=== PATIENT | female | born 1980 | race Two or more races ===

== ENCOUNTER 2024-06-01 15:59 | Emergency (ER) | payer MEDICAID, SELFPAY ==
[2024-06-01 16:34] VITALS: BP 129/82; PULSE 78; RESP 18; TEMP 36.9; O2SAT 98; BMI 24.9
--- NOTE | 2024-06-01 16:40 | XR_ITS ---
Examination: Abdomen sonogram, Limited Date and time of exam: June 01, 2024 1633 hrs. Indications: Epigastric pain beginning 2 days ago Technique: Real-time gomez scale transabdominal sonographic images of the upper abdomen obtained. Findings: Multiple gallstones Normal gallbladder wall Normal common bile duct 0.5 cm Pancreatic head 2.3 cm Liver 15.4 cm smooth contour Normal hepatopedal portal venous flow Patent IVC Impression: Cholelithiasis, negative for cholecystitis
--- NOTE | 2024-06-01 16:42 | PD.EDRME ---
Rapid Medical Screening Exam E Arrival date/time: 06/01/24 15:59 44-year-old female presents to the emergency department with complaints of upper epigastric abdominal pain radiating to bilateral flanks. I have greeted and performed a focused initial assessment of this patient. Initial appropriate labs ordered at this time. A comprehensive ED assessment and evaluation of the patient and analysis of all test and completion of medical decision making process will be conducted by additional ED provider. Chief Complaint: Abdominal Pain Time Seen by Provider: 06/01/24 16:10 Vital signs: Vital Signs Temperature 98.4 F 06/01/24 16:34 Pulse Rate 78 06/01/24 16:34 Respiratory Rate 18 06/01/24 16:34 Blood Pressure 129/82 06/01/24 16:34 Pulse Oximetry (%) 98 06/01/24 16:34 Oxygen Delivery Method Room Air 06/01/24 16:34
[2024-06-01 17:36] LABS: Hematocrit 40.2 % (36.0-46.0); Hemoglobin 13.6 g/dL (12.0-16.0); Lymphocytes % (Auto) 15 % (10-50); Mean Corpuscular HGB Conc 33.8 g/dl (31.0-37.0); Mean Corpuscular Hemoglobin 27.5 pg (25.0-35.0); Mean Corpuscular Volume 81 fL (80-100); Monocytes % (Auto) 5 % (0-12); Neutrophils % (Auto) 78 % (37-80); Platelet Count 265 Thou/mm3 (140-440); RDW Standard Deviation 38.1 fL (36.4-46.3); Red Blood Count 4.95 Miln/mm3 (4.00-5.20); White Blood Count 16.7 Thou/mm3 (3.6-11.0)
[2024-06-01 17:37] LABS: Basophils # (Auto) 0.1 Thou/mm3 (0.0-0.2); Basophils % (Auto) 0 % (0-2.5); Eosinophils # (Auto) 0.1 Thou/mm3 (0.0-0.5); Eosinophils % (Auto) 1 % (0-10); Immature Granulocytes % (Auto) 1 % (0-0); Immature Granulocytes Auto 0.08 Thou/mm3 (0.00-0.00); Lymphocytes # (Auto) 2.6 Thou/mm3 (1.0-4.8); Monocytes # (Auto) 0.9 Thou/mm3 (0.0-0.8); Neutrophils # (Auto) 13.1 Thou/mm3 (1.8-7.7); Nucleated Red Blood Cell % 0 /100 WBC (0)
[2024-06-01 17:55] LABS: Alanine Aminotransferase 40 U/L (10-49); Albumin, Serum 4.7 gm/dL (3.5-5.0); Albumin/Globulin Ratio 1.7 (1.2-2.2); Alkaline Phosphatase 108 U/L (46-116); Anion Gap 8 (7-16); Aspartate Amino Transferase 56 U/L (0-34); BUN/Creatinine Ratio 14 Ratio (12-20); Bilirubin,Total 0.3 mg/dL (0.3-1.2); Blood Urea Nitrogen 11 mg/dL (9-23); Calcium 9.2 mg/dL (8.3-10.6); Calcium (Corrected) 9.2 mg/dL (8.5-10.1); Carbon Dioxide 27.1 mMol/L (20.0-31.0); Chloride 104 mMol/L (98-107); Creatinine (Component) 0.8 mg/dL (0.6-1.3); Estimated Creatinine Clearance 84.6 mL/min (>60); Globulin 2.7 gm/dL (2.3-3.5); Glucose 114 mg/dL (74-106); Lipase 41 U/L (12-53); Osmolality,Calculated 277 (275-295); Potassium 3.7 mMol/L (3.4-5.1); Sodium 139 mMol/L (136-145); Total Protein 7.4 gm/dL (5.7-8.2); eGFR > 60 See Note
[2024-06-01 18:11] LABS: Collection Type, Urine Clean Catch
[2024-06-01 18:51] LABS: Bilirubin,Urine Negative (Negative); Blood,Urine Negative (Negative); Clarity,Urine Clear (Clear/Hazy); Color,Urine Lt-Yellow (Lt Yel-Yel); Glucose, Urine Negative (Negative); HCG Qualitative,Urine Negative; Ketones,Urine Negative (Negative); Leukocyte Esterase,Urine Positive (Negative); Nitrite,Urine Negative (Negative); Protein,Urine Trace (Neg - Trace); RBC,Urine 6 /hpf (0-3); Specific Gravity,Urine 1.021 (1.001-1.035); Squamous Epithelial Cell,Urine 8 /hpf (0-5); Urobilinogen,Urine Negative mg/dL (0.0-1.0); WBC,Urine 4 /hpf (0-5)
[2024-06-01] MEDS: LIDOCAINE VISCOUS 2% 15 ML UDC PO (19:00)
[2024-06-01] MEDS: MG HYD/AL HYD/SIME (Maalox Reg) SUSP 30 ML UDC PO (19:00)
--- NOTE | 2024-06-01 19:04 | EDNOTE_ITS ---
ED Abdominal Pain RME/HPI General Chief Complaint: Abdominal Pain Stated complaint: STOMACH CRAMPS X 20 MIN Time seen by provider: 06/01/24 16:10 Arrival date/time: 06/01/24 15:59 RME / HPI RME / HPI narrative: 44-year-old female patient came in for evaluation regarding epigastric pain. Onset of symptoms for the last several weeks as on and off epigastric pain usually after eating heavy foods. Today it happened again lasting for 20 minutes. No vomiting no other complaints. No medication was taken prior travel. Related Data Home Medications ?Medication ?Instructions ?Recorded ?Confirmed vitamins-iron fumarate 27 tab PO 1XD 09/09/19 mg iron-folic acid 0.8 mg tablet ( Vitamin) Previous Rx's ?Medication ?Instructions ?Recorded ibuprofen 600 mg tablet 600 mg PO Q6H PRN pain #30 t abs 11/21/23 dicyclomine 20 mg tablet 20 mg PO TID PRN abdominal p ain 06/01/24 #30 tabs pantoprazole 40 mg tablet,delayed 40 mg PO QDAY #14 ta bs 06/01/24 release (Protonix) Allergies Allergy/AdvReac Type Severity Reaction Status Date / Time morphine Allergy Mild ITCHING Verified 06/01/24 16:02 Review of Systems Review of Systems Narrative Review of Systems: Review of system reviewed and within normal limits except mentioned in HPI ED Exam Narrative Physical exam: VITAL SIGNS: Reviewed. GENERAL APPEARANCE: Alert and interactive, follows commands, no acute distress, HEAD AND FACE: Non-traumatic. ENT: PERRL, pink conjunctivitis, eyelid no trauma, Mucous membrane moist. NECK: Supple, nontender, no nuchal rigidity. CHEST: No tenderness, no crepitus, no paradoxical movement, no retractions. LUNGS: Clear, well ventilated, symmetric, no rales, no wheezing, no ronchi, no stridor, good breath sounds bilaterally. HEART: Regular rate, regular rhythm, no murmur, no gallops. ABDOMEN: Soft, positive bowel sounds, nondistended, no guarding, epigastric tenderness, no rebound, no masses, RECTAL: Deferred. GENITAL: Deferred. NEUROLOGICAL: Gross motor function intact sensory function intact, Appropriate for age. MUSCULOSKELETAL: low back nontender, full range of motion. EXTREMITIES: Nontender, full range of motion. SKIN: Color pink, dry, no rash, no lacerations, no abrasions, no contusions. LYMPHATICS: Deferred. Course Quality Measures none Orders Category Date Time Status US gall bladder Stat Exams 06/01/24 16:40 Completed CBC Stat Lab 06/01/24 17:20 Completed Comprehensive Metabolic Panel Stat Lab 06/01/24 17:20 Completed HCG Qualitative,Urine Stat Lab 06/01/24 18:06 Completed Lipase Stat Lab 06/01/24 17:20 Completed Urinalysis Stat Lab 06/01/24 18:06 Completed Lidocaine 2% Viscous [Xylocaine 2% Viscous] Med 06/01/24 16:40 Discontinued 15 ml PO X1 ONE mg Hyd/Al Hyd/Peggy Susp [Maalox Susp] Med 06/01/24 16:40 Discontinued 30 ml PO X1 ONE Vital Signs Vital signs: Vital Signs Temperature 98.4 F 06/01/24 16:34 Pulse Rate 78 06/01/24 16:34 Respiratory Rate 18 06/01/24 16:34 Blood Pressure 129/82 06/01/24 16:34 Pulse Oximetry (%) 98 06/01/24 16:34 Oxygen Delivery Method Room Air 06/01/24 16:34 Abdominal Pain MDM MDM Narrative MDM Narrative:: 44-year-old female patient came in for evaluation regarding epigastric pain. Onset of symptoms for the last several weeks as on and off epigastric pain usually after eating heavy foods. Today it happened again lasting for 20 minutes. No vomiting no other complaints. No medication was taken prior travel. Prior to discharge patient is not having any epigastric pain no recurrence of epigastric pain noted also. Patient's workup is significant for cholelithiasis with no sign of acute cholecystitis. CBC CMP all came back normal. Patient data External records reviewed:: None Clinical information provided by:: patient Social determinants that could affect healthcare access:: none Patient has the following chronic illnesses:: None How is presenting disease/condition affected by chronic disease/condition?: no chronic disease Evaluation data The following diagnostics were reviewed and interpreted by me:: lab results and radiology exam(s) Lab and/or radiology exams considered but not ordered:: None Interpretation Summary: See results in MDM Medications / Prescriptions Medications or Prescriptions considered but not ordered:: None Medication administrations:: Medication Administration History Discontinued Medications Al Hydrox/Mg Hydrox/Simethicone (Mg Hyd/Al Hyd/Peggy (Maalox Reg) Susp 30 Ml Udc) 30 ml PO X1 ONE Stop: 06/01/24 16:41 Last Admin: 06/01/24 19:00 Dose: 30 ml Documented By: Lidocaine HCl (Lidocaine Viscous 2% 15 Ml Udc) 15 ml PO X1 ONE Stop: 06/01/24 16:41 Last Admin: 06/01/24 19:00 Dose: 15 ml Documented By: GI cocktail Consultations Consultation(s) initiated? (list below): No Diagnosis Differential diagnosis abdominal pain: abdominal pain, constipation and pancreatitis Most likely diagnosis given after review of the tests above:: Gallstone Admission Indicated Admission indicated?: not indicated Explain why admission is indicated or not indicated:: Stable Admission Request Was there a request for admission?: No Disposition Plan Disposition Plan: Discharge Discharge Attestation Discharge Attestation: The patient was given an opportunity to ask questions and understood the discharge instructions. Discharge instructions specifically effects, indications for sooner follow up or return to the emergency department, and the expected course of current diagnosis. Patient condition: Stable Discharge Plan Plan Patient Disposition: HOME (Self Care) Disposition Comment: Stable Prescriptions/Referrals Prescriptions/Med Rec: New dicyclomine 20 mg tablet 20 mg PO TID PRN (Reason: abdominal pain) Qty: 30 0RF pantoprazole [Protonix] 40 mg tablet,delayed release (DR/EC) 40 mg PO QDAY Qty: 14 0RF No Action Vitamin 27 mg iron- 0.8 mg Tablet PO 1XD ibuprofen 600 mg tablet 600 mg PO Q6H PRN (Reason: pain) Qty: 30 0RF Referrals: No Primary/Family,Physician [Primary Care Provider] - In 1 week Problem List Clinical Impression: Gallstone Patient/Caregiver Discharge Instructions Discharge Activity: activity as tolerated Education Materials: Treating Gallstones Additional Instructions: Thank you for the opportunity for serving you today. You are stable for discharged . You are advised to: Follow-up with your PCP in 1 to 2 days and asked for referral to general surgeon Please avoid eating fried, greasy, fried foods Return to ED for worsening of symptoms Increase oral fluids Take medication as prescribed Print Language: Estonian Stand Alone Forms: [place] Award Info., Patient Portal Info Letter GRAY/MADELEINE Supervising Physician GRAY/MADELEINE Supervising Physician: MD Chester
[2024-06-01 19:30] VITALS: RESP 18
== END 2024-06-01 19:31 | disposition home or self-care (01) ==
PROVIDERS: Nurse Practitioner Primary Care; Emergency Provider Emergency Medicine
DX: K80.20 Calculus of gallbladder without cholecystitis without obstruction (principal); Z88.5 Allergy status to narcotic agent
CPT/HCPCS: 36415; 76705; 80053; 81001; 81025; 83690; 85025; 99284; J3490; A9270

== ENCOUNTER 2024-07-11 08:55 | Day surgery (SDC) | payer MEDICAID, SELFPAY ==
[2024-07-10 11:02] VITALS: BMI 24.7
[2024-07-10 12:17] LABS: Alanine Aminotransferase 74 U/L (10-49); Albumin, Serum 5.2 gm/dL (3.5-5.0); Albumin/Globulin Ratio 2.2 (1.2-2.2); Alkaline Phosphatase 130 U/L (46-116); Anion Gap 8 (7-16); Aspartate Amino Transferase 55 U/L (0-34); BUN/Creatinine Ratio 9 Ratio (12-20); Beta HCG,Quantitative 2 mIU/mL (<5.0); Bilirubin,Total 0.2 mg/dL (0.3-1.2); Blood Urea Nitrogen 8 mg/dL (9-23); Calcium 9.8 mg/dL (8.3-10.6); Calcium (Corrected) 9.8 mg/dL (8.5-10.1); Chloride 102 mMol/L (98-107); Creatinine (Component) 0.9 mg/dL (0.6-1.3); Estimated Creatinine Clearance 72.3 mL/min (>60); Globulin 2.4 gm/dL (2.3-3.5); Glucose 93 mg/dL (74-106); Osmolality,Calculated 272 (275-295); Potassium 4.6 mMol/L (3.4-5.1); Sodium 137 mMol/L (136-145); Total Protein 7.6 gm/dL (5.7-8.2); eGFR > 60 See Note
[2024-07-10 12:30] LABS: Basophils # (Auto) 0.1 Thou/mm3 (0.0-0.2); Basophils % (Auto) 1 % (0-2.5); Eosinophils # (Auto) 0.1 Thou/mm3 (0.0-0.5); Eosinophils % (Auto) 1 % (0-10); Hematocrit 40.8 % (36.0-46.0); Hemoglobin 13.5 g/dL (12.0-16.0); Immature Granulocytes % (Auto) 0 % (0-0); Immature Granulocytes Auto 0.03 Thou/mm3 (0.00-0.00); Lymphocytes # (Auto) 2.5 Thou/mm3 (1.0-4.8); Lymphocytes % (Auto) 35 % (10-50); Mean Corpuscular HGB Conc 33.1 g/dl (31.0-37.0); Mean Corpuscular Hemoglobin 27.2 pg (25.0-35.0); Mean Corpuscular Volume 82 fL (80-100); Monocytes # (Auto) 0.5 Thou/mm3 (0.0-0.8); Monocytes % (Auto) 7 % (0-12); Neutrophils % (Auto) 56 % (37-80); Nucleated Red Blood Cell % 0 /100 WBC (0); Platelet Count 242 Thou/mm3 (140-440); RDW Standard Deviation 38.5 fL (36.4-46.3); Red Blood Count 4.96 Miln/mm3 (4.00-5.20)
--- NOTE | 2024-07-10 15:21 | SUR.PREOP ---
Pt notified to come in at 1000 tomorrow.
[2024-07-11] VITALS (12 sets, daily range): BP systolic 115–142; BP diastolic 66–104; PULSE 61–94; RESP 12–22; TEMP 36.4–36.6; O2SAT 77–100; BMI 24.4
[2024-07-11] MEDS: fentaNYL CIT INJ 50 mCg/ML AMP 2ML IV (11:45)
--- NOTE | 2024-07-11 12:07 | SUR.PHASEI ---
1125: Pt received in [facility] via gurney. Pt arrived with 02 Sats 77% 10L via mask. Jaw thrust provided with deep breath initiated. 02 sats up to 90%. Report from Abida WILKINSON and Edith JUNIOR. Other VS stable. Surgical sites to abdomen x4 secured with dermabond and without any swelling, discoloration. 1130: Jaw thrust dc'd. Resp shallow and not effective. 02 sats dropping down to 80%. Narcan administered by MINH. 1135: 02 sats up to 100%. Resp even, unlabored. 1145: Pt awake with c/o pain to abdomen. Rates pain level 10/10. VS stable. Resp even, unlabored. Pain medication given per order. 1155: Pt resting with no further complaints. VS stable. Resp even, unlabored. Surgical sites remain dry, clean, intact.
--- NOTE | 2024-07-11 12:42 | PD.SUROPNT ---
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 After administration of general endotracheal anesthesia abdomen was prepped and draped in standard surgical manner. A Veress needle was inserted through the umbilicus and pneumoperitoneum was obtained up to 15 mmHg. The Veress needle was then removed, a 5 mm infraumbilical incision was made and the 5mm trocar was inserted. Laparoscopic camera was placed. Under direct visualization a laparoscopic camera a 10 mm trocar was placed in subxiphoid and two 5 mm trocars placed in right upper quadrant. Patient was noted to have moderate amount of adhesions on anterior surface of the liver consistent with Josh-Tree Carroll syndrome. Lysis of adhesions performed with electrocautery. The gallbladder was identified and was noted to be moderately distended with multiple gallstones and chronic cholecystitis. It was retracted cephalad and laterally. Dissection started near the infundibulum of gallbladder where cystic duct and gallbladder junction clearly identified. The cystic duct was circumferentially dissected off the peritoneum and surrounding inflammatory tissue. The critical view of safety was clearly demonstrated. Cystic duct was then divided between 2 endoclips proximally and one distally. The cystic artery was similarly dissected and divided. The gallbladder was then from the liver bed using electrocautery. The gallbladder was then placed inside an Endo Catch and removed from the abdomen utilizing subxiphoid trocar site. The area was copiously and thoroughly washed and irrigated, all the fluid was suctioned and the suction fluid returned clear. Hemostasis achieved using electrocautery. Endoclips noted be in place and intact without any bleeding or any leakage. Hemostasis was adequate and satisfactory. The subxiphoid trocar sites fascial defect was closed with 0 Vicryl using Endo Closure device. Instruments and trocars removed, pneumoperitoneum was evacuated and the incisions closed with 4-0 Monocryl in subcuticular fashion. Instrument needle and sponge counts were all reported to be correct X2. Patient tolerated the procedure well, was extubated, breathing spontaneously and without difficulty and was transferred to postanesthesia care in stable condition. Anesthesia GETA and local Pathology / specimen Other (Gallbladder and contents) Estimated Blood Loss 10 Condition Stable Disposition PACU Surgeon Kenia Paredes MD Surgical Staff Operation Date: 07/11/24 12:15 Case Staff FACILITY REHAB DIRECTOR: Nikita Farah RN First Assistant: Isidra Moss
--- NOTE | 2024-07-11 14:45 | SUR.PHASEII ---
1255: Pt fully awake, oriented x3. States she feel ready to go home. VS stable. Surgical sites remain dry, clean, intact. States pain level down and much more tolerable. 1318: Pt and stated understanding of discharge instructions. Pt also instructed to picker / packer her prescriptions at [facility]. Pt discharged from [facility] in stable condition.
== END 2024-07-11 13:18 | disposition home or self-care (01) ==
PROVIDERS: PCP Family Medicine; Referring Provider Surgery; Visit Provider Surgery
PROC: 0FT44ZZ Resection of Gallbladder, Percutaneous Endoscopic Approach (ICD-10-PCS; CPT 47562; principal; 2024-07-11 12:00)
DX: K80.10 Calculus of gallbladder with chronic cholecystitis without obstruction (principal); A74.81 Chlamydial peritonitis
CPT/HCPCS: 47562; 36415; 80053; 84702; 85025; A4217; A4649; J0131; J0690; J0694; J1100; J1171; J1885; J2250; J2310; J2405; J2704; J3010; J3490